=== PATIENT | male | born 2000 | race African-American/Black ===

== ENCOUNTER 2022-11-13 15:51 | Emergency (ER) | payer SELFPAY ==
[2022-11-13] MEDS ORDERED: Ketorolac Tromethamine 30 MG/ML VIAL ONE (17:42)
[2022-11-13 18:45] LABS: SARS-CoV-2 NAA Rapid Test Not Detected (NotDetected)
== END 2022-11-13 19:23 | disposition home or self-care (01) ==
LOC: CSHERS 15:51
DX: R51.9 Headache, unspecified (principal); H11.422 Conjunctival edema, left eye; Z20.822 Contact with and (suspected) exposure to COVID-19
CPT/HCPCS: 96372; 99284; J1885; U0002

== ENCOUNTER 2023-02-16 12:18 | Emergency (ER) | payer SELFPAY ==
[2023-02-16 14:00] LABS: SARS-CoV-2 NAA Rapid Test Not Detected (NotDetected)
== END 2023-02-16 14:25 | disposition home or self-care (01) ==
LOC: CSHERS 12:18
DX: J31.0 Chronic rhinitis (principal); Z20.822 Contact with and (suspected) exposure to COVID-19
CPT/HCPCS: 87081; 87430; 99283

== ENCOUNTER 2023-03-09 19:40 | Emergency (ER) | payer OTHER, SELFPAY | END 2023-03-09 20:32 | disposition home or self-care (01) | LOC: CSHERS 19:40 | DX: S60.221A Contusion of right hand, initial encounter (principal); K52.9 Noninfective gastroenteritis and colitis, unspecified; W17.82XA Fall from (out of) grocery cart, initial encounter; Y92.512 Supermarket, store or market as the place of occurrence of the external cause | CPT/HCPCS: 99283 ==

== ENCOUNTER 2024-01-14 18:22 | Emergency (ER) | payer SELFPAY ==
[2024-01-14] MEDS ORDERED: Ondansetron ODT 4 MG TAB ONE (19:26)
[2024-01-14 20:24] LABS: Amphetamine Detected (NotDetected); Barbiturates Screen Not Detected (NotDetected); Benzodiazepine Screen Not Detected (NotDetected); Cocaine Metabolite Screen Not Detected (NotDetected); Methadone Not Detected (NotDetected); Methamphetamine Detected (NotDetected); Opiate Screen Not Detected (NotDetected); Oxycodone Screen Not Detected (NotDetected); Phencyclidine (PCP) Not Detected (NotDetected); THC/Cannabinoid Screen Detected (NotDetected); Tricyclic Screen Not Detected (NotDetected)
[2024-01-14 20:37] LABS: #Basophils 0.03 10x3/uL (0.0-0.2); #Neutrophils 3.67 10x3/uL (1.5-8.4); %Basophils 0.5 % (0.0-2.0); %Eosinophils 3.1 % (0.0-6.0); %Lymphocytes 33.1 % (18.0-47.0); %Monocytes 6.2 % (0.0-10.0); %Neutrophils 56.9 % (40.0-75.0); Hematocrit 45.7 % (38.8-50.0); Hemoglobin 14.9 g/dL (13.5-17.5); Mean Corpuscular HGB CONC 32.6 g/dL (32.0-36.0); Mean Corpuscular Hemoglobin 25.4 pg (27.0-33.0); Mean Platelet Volume 9.7 fL (7.4-10.4); Platelet Count 354 10x3/uL (150-450); RBC Distribution Width 14.6 % (11.5-14.5); Red Blood Cell (RBC) Count 5.86 10x6/uL (4.32-5.72); White Blood Cell (WBC) Count 6.4 10x3/uL (3.5-10.5)
[2024-01-14 20:55] LABS: Acetaminophen Less than 10 mcg/mL (Less than 10); Alcohol Less than 10.0 mg/dL (Less than 10); Lipase 71 U/L (8-78); Salicylate Less than 8.0 mg/dL (Less than 8.0)
[2024-01-14 20:57] LABS: ALT (SGPT) 38 U/L (8-55); AST (SGOT) 25 U/L (5-34); Albumin 3.7 g/dL (3.5-5.0); Alkaline Phosphatase 50 U/L (40-110); Anion Gap 15 mmol/L (10-20); BUN (Urea Nitrogen) 13 mg/dL (8.9-20.6); Bilirubin, Total 0.2 mg/dL (0.2-1.2); Calc. Creatinine Clearance 0 mL/min (70-130); Calcium 9.5 mg/dL (7.8-10.44); Carbon Dioxide 20 mmol/L (22-29); Chloride 105 mmol/L (98-107); Estimated GFR 119; Globulin 3.2 g/dL (2.4-3.5); Glucose 138 mg/dL (70-105); Potassium 4.1 mmol/L (3.5-5.1); Protein, Total 6.9 g/dL (6.0-8.3); Sodium 136 mmol/L (136-145)
[2024-01-14 21:02] LABS: Troponin I Less than 0.010 ng/mL (< 0.028)
== END 2024-01-14 21:22 | disposition home or self-care (01) ==
LOC: CSHERS 18:22
DX: R42 Dizziness and giddiness (principal); F15.10 Other stimulant abuse, uncomplicated; F17.290 Nicotine dependence, other tobacco product, uncomplicated
CPT/HCPCS: 36415; 70450; 80053; 80306; 80307; 83690; 84484; 85025; 93005; Q0162